=== PATIENT | male | born 1990 | race Caucasian/White ===

== ENCOUNTER 2023-11-03 13:15 | Outpatient (RCR) | payer OTHER, SELFPAY ==
[2023-11-03 14:06] LABS: Basophils Absolute Auto 0.02 K/uL (0.00-0.30); Basophils Percent Auto 0.4 % (0.0-3.0); Eosinophils Absolute Auto 0.08 K/uL (0.00-0.50); Eosinophils Percent Auto 1.8 % (0.0-7.0); Hematocrit 29.2 % (37.0-53.0); Hemoglobin* 9.2 gm/dL (13.5-17.5); Immature Granulocytes Abs Auto 0.01 K/uL (0.00-0.30); Immature Granulocytes Pct Auto 0.2 %; Lymphocytes Absolute Auto 1.43 K/uL (0.90-2.90); Lymphocytes Percent Auto 31.4 % (20-44); Mean Corpuscular HGB Conc 32 gm/dL (32-36); Mean Corpuscular Hemoglobin 28 pg (26-34); Mean Corpuscular Volume 89 fL (80-100); Monocytes Percent Auto 6.8 % (0.0-11.0); Neutrophils Absolute Auto 2.71 K/uL (1.7-7.0); Neutrophils Percent Auto 59.4 % (42.0-72.0); Platelet Count* 276 K/uL (140-440); RDW Coefficient of Variation % 14.9 % (11.5-15.5); White Blood Count* 4.56 K/uL (4.50-11.00)
[2023-11-03 14:07] LABS: Slide Review Reflex No
[2023-11-03 14:46] LABS: Blood Urea Nitrogen* 4 mg/dL (5-24)
[2023-11-03 15:44] LABS: Albumin* 4.3 g/dL (3.3-5.0)
[2023-11-03 15:47] LABS: Creatinine* 0.5 mg/dL (0.5-1.5); Estimated Glomerular Filt Rate 139 ml/min; Total Protein* 7.2 g/dL (6.0-8.3)
[2023-11-03 15:48] LABS: Alanine Aminotransferase* 28 U/L (4-50); Alkaline Phosphatase* 89 U/L (40-150); Aspartate Amino Transferase* 28 U/L (12-35); Bilirubin Direct* 0.4 mg/dL (0.0-0.5); Bilirubin Total* 0.6 mg/dL (0.1-1.5)
[2023-11-03 15:51] LABS: C Reactive Protein* 3.5 mg/dL (0.5-1.0)
== END 2024-05-01 23:59 | disposition home or self-care (01) ==
LOC: CCIC 13:15
PROVIDERS: Visit Provider Clinical Nurse Specialist
DX: Z45.2 Encounter for adjustment and management of vascular access device (principal)
CPT/HCPCS: 36415; 80076; 80202; 82565; 84520; 85025; 86140; 99211; A4221